=== PATIENT | female | born 1935 | race Caucasian/White ===

== ENCOUNTER 2017-07-14 13:14 | Inpatient (IN) | payer OTHER ==
[~2017-07-14] VITALS: Ht 157.5 cm; Wt 77.6 kg
[~2017-07-14 13:14] MED LIST: ADULT LOW STREN81 M2 PO; ALENDRONATE SOD70 MG PO; AMARYL1 MG PO; AMARYL2 MG PO; ASCORBIC ACID500 M1 PO; ASCORBIC ACID500 M3 PO; ASPIR 8181 M1 PO; AVENTYL,PAMELOR10 M1 PO; BACTRIM,SEPT1 TABLET PO; BUMETANIDE2 MG PO; CEFTIN250 MG PO; CITALOPRAM HBR10 MG PO; Colace PO; DILAUDID2 MG PO; Dilaudid PO; Duragesic TD; ERGOCALCIF50000 UNIT PO; FOSAMAX70 MG PO; GABAPENTIN800 MG PO; GLUCOPHAGE XR500 MG PO; GLUCOPHAGE1000 MG PO; GLUCOSAMINE CH1 EAC2 PO; GLUCOSAMINE1000 MG PO; IRON325 M1 PO; JANUVIA25 M1 PO; LASIX40 MG PO; LIDOCAINE700 MG TD; LISINOPRIL10 MG PO; LOPRESSOR100 M1 PO; LOW DOSE ASPIRI81 M2 PO; Levaquin PO; METFORMIN HCL1000 M1 PO; METOPROLOL TART25 MG PO; MIRALAX, GLYCOL1 PK1 PO; MUPIROCIN22 GM TP; NEURONTIN300 MG PO; NEURONTIN400 MG PO; OXYCODONE HCL5 MG PO; PAMELOR10 MG PO; PERCOCET 5/31 TABLET PO; PRINIVIL10 MG PO; PROMETHAZINE HC25 M1 PO; PROTONIX40 MG PO; SENOKOT S,PE1 TABLET PO; SIMVASTATIN40 M1 PO; TOPROL XL100 MG PO; TRAMADOL HCL50 MG PO; TRAZODONE HCL50 MG PO; TYLENOL REGULA325 MG PO; VICODIN 5-3001 EACH PO; VITAMIN B-12250 MCG PO; VITAMIN B12-FO1 EACH PO; VITAMIN D1000 INTUN PO; VITAMIN D1000 UNIT PO; VITAMIN D250000 UNIT PO; VITAMIN D31000 UNIT PO; VITAMIN D5000 INTUN PO; Vitamin D, Drisdol PO; ZOCOR40 MG PO
[2017-07-14 15:45] LABS: EOSINOPHIL (%) 0.8 % (0-5); EOSINOPHIL COUNT 0.1 K/uL (0-0.3); HEMATOCRIT 35.2 % (36.0-46.0); IMMATURE GRANULOCYTE (%) 0.2 % (0.0-0.7); INSTRUMENT ABS NEUTROPHIL CT 5.6 K/uL; LYMPHOCYTE COUNT 1.9 K/uL (1.0-2.8); MCH 28.9 PG (29.0-34.0); MCV 87.6 FL (83-99); MEAN PLAT.VOLUME 9.7 uM^3 (9.5-12.4); MONOCYTE (%) 8.4 % (3-12); MONOCYTE COUNT 0.7 K/uL (0-0.8); NEUTROPHIL (%) 66.9 % (45-76); NEUTROPHIL COUNT 5.6 K/uL (1.8-6.4); PLATELET COUNT 280 K/uL (156-360); RBC DIS.WIDTH-CV 12.8 % (11.8-14.6); RED BLOOD COUNT 4.02 M/uL (3.80-5.20); WHITE BLOOD COUNT 8.3 K/uL (4.1-10.2)
[2017-07-14 15:54] LABS: CHLORIDE 103 mEq/L (99-109); POTASSIUM 3.9 mEq/L (3.7-5.4); SODIUM 141 mEq/L (136-147)
[2017-07-14 15:55] LABS: GLUCOSE 134 mg/dL (70-99)
[2017-07-14 15:57] LABS: ANION GAP 14 MEQ/L (2-14)
[2017-07-14 15:59] LABS: GFR ESTIMATE (CALCULATED) 50 mL/min/
[2017-07-14 16:00] LABS: UREA NITROGEN (BUN) 24 mg/dL (9-23)
[2017-07-14] MEDS ORDERED: NEURONTIN400 MG PO (17:26)
[2017-07-14] MEDS ORDERED: CELEXA20 MG PO (17:26)
[2017-07-14] MEDS ORDERED: BUMEX1 MG PO (17:28)
[2017-07-14] MEDS ORDERED: BUMEX2 MG PO (17:28)
[2017-07-14] MEDS ORDERED: LO-DOSE ASPIRIN81 M1 PO (17:29)
[2017-07-14] MEDS ORDERED: VITAMIN E400 UNIT PO (17:29)
[2017-07-14] MEDS ORDERED: LOPRESSOR25 MG PO (17:29)
[2017-07-14] MEDS ORDERED: AMARYL2 MG PO (17:30)
[2017-07-14] MEDS ORDERED: ZESTRIL2.5 MG PO (17:30)
[2017-07-14] MEDS ORDERED: GLUCOPHAGE500 MG PO (17:30)
[2017-07-14] MEDS ORDERED: OCEAN NASAL 0.645 ML BOTH NARES (17:31)
[2017-07-14] MEDS ORDERED: B-12500 MC1 SL (17:32)
[2017-07-14 20:46] VITALS: BP 188/77
[2017-07-14 21:31] LABS: POINT-OF-CARE METER ID UU14208753
[2017-07-14 23:37] VITALS: BP 161/87
[2017-07-15 02:29] LABS: ADD MIUA? YES; BILIRUBIN NEGATIVE; BLOOD NEGATIVE; COLOR STRAW ((YELLOW)); GLUCOSE (STRIP) NEGATIVE; KETONES NEGATIVE; LEUKOCYTES SMALL; NITRITE NEGATIVE; PROTEIN (STRIP) NEGATIVE; SPECIFIC GRAVITY 1.011 (1.000-1.030); UROBILINOGEN 0.2 MG/DL (0.2-1.0)
[2017-07-15 02:33] LABS: BACTERIA NONE SEEN /HPF; EPITHELIAL CELLS RARE /HPF; MUCUS NONE SEEN /LPF; RED BLOOD CELLS 0-5 /HPF (0-5); WHITE BLOOD CELLS 15-20 /HPF (0-5)
[2017-07-15 05:36] VITALS: BP 145/63
[2017-07-15 06:32] LABS: ANION GAP 10 MEQ/L (2-14); CHLORIDE 107 MEQ/L (99-109); GFR ESTIMATE (CALCULATED) 56 mL/min/; GLUCOSE 104 mg/dL (70-99); POTASSIUM 4.3 MEQ/L (3.7-5.4); SAMPLE HEMOLYSIS CHECK 1; SAMPLE ICTERIC CHECK 0; SAMPLE LIPEMIA CHECK 0; SODIUM 141 MEQ/L (136-147); UREA NITROGEN (BUN) 20 mg/dL (9-23)
[2017-07-15 06:34] LABS: POINT-OF-CARE METER ID UU14208753
[2017-07-15 07:27] LABS: HEMATOCRIT 31.9 % (36.0-46.0); MCH 29.7 PG (29.0-34.0); MCHC 33.2 G/DL (30.0-36.0); MCV 89.4 FL (83-99); MEAN PLAT.VOLUME 9.9 uM^3 (9.5-12.4); PLATELET COUNT 260 K/uL (156-360); RBC DIS.WIDTH-SD 42.5 % (39-53); RED BLOOD COUNT 3.57 M/uL (3.80-5.20); WHITE BLOOD COUNT 5.4 K/uL (4.1-10.2)
[2017-07-15 08:03] VITALS: BP 145/62
[2017-07-15 11:57] LABS: POINT-OF-CARE METER ID UU14208753
[2017-07-15 12:29] VITALS: BP 134/63
[2017-07-15 16:47] LABS: POINT-OF-CARE METER ID UU14117124
[2017-07-15 17:21] VITALS: BP 108/53
[2017-07-15 20:19] VITALS: BP 117/57
[2017-07-15 21:57] LABS: POINT-OF-CARE METER ID UU14117124
[2017-07-15 23:59] VITALS: BP 146/67
[2017-07-16 04:40] VITALS: BP 128/61
[2017-07-16 06:09] LABS: DRVVT 1:1 Mix Immediate NOT CORRECTED sec (CORRECTED); LUPA PHOSPHOLIPID NEUTRALIZ Positive (Negative)
[2017-07-16 06:42] LABS: POINT-OF-CARE METER ID UU14117124
[2017-07-16 07:37] VITALS: BP 112/57
[2017-07-16 12:08] LABS: POINT-OF-CARE METER ID UU14149397
[2017-07-16 12:17] VITALS: BP 136/65
[2017-07-16 15:56] VITALS: BP 128/58
[2017-07-16 16:50] LABS: POINT-OF-CARE METER ID UU14149397
[2017-07-16 22:00] LABS: POINT-OF-CARE METER ID UU14117124
[2017-07-17 00:15] VITALS: BP 129/60
[2017-07-17 07:10] LABS: POINT-OF-CARE METER ID UU14117124
[2017-07-17 07:55] VITALS: BP 97/55
[2017-07-17] MEDS ORDERED: KEFLEX500 MG PO (10:43)
[2017-07-17] MEDS ORDERED: DOXYCYCLINE HY100 MG PO (10:45)
[2017-07-17 12:29] LABS: POINT-OF-CARE METER ID UU14117124
[2017-07-17 16:34] LABS: DRVVT Mixing Study Interp Positive (()); PROTEIN C FUNCTIONAL ACTIVITY+ 177 % (70-180); PTT-LA 31 sec (<=40); Protein S, Free 147 % normal (50-147); Thrombosis Consult Level Limited (()); dRVVT Screen 56 sec (<=45)
[2017-07-18 09:32] LABS: ANTITHROMBIN III ACTIVITY+ 87 % activi (80-120)
== END 2017-07-17 13:56 | disposition home or self-care (01) | DRG 300 ==
LOC: EME 13:14 → EDOF 17:32 → 3EAST 17:32 → ENRESERV 17:35 → 3EAST 20:35
PROVIDERS: Hospitalist; Internal Medicine; Physician Assistant
DX: I82.4Z1 Acute embolism and thrombosis of unspecified deep veins of right distal lower extremity (principal); L03.115 Cellulitis of right lower limb; M86.171 Other acute osteomyelitis, right ankle and foot; F33.9 Major depressive disorder, recurrent, unspecified; E11.42 Type 2 diabetes mellitus with diabetic polyneuropathy; L97.511 Non-pressure chronic ulcer of other part of right foot limited to breakdown of skin; E11.622 Type 2 diabetes mellitus with other skin ulcer; E11.628 Type 2 diabetes mellitus with other skin complications; Z66 Do not resuscitate; M81.0 Age-related osteoporosis without current pathological fracture; L03.031 Cellulitis of right toe; E78.5 Hyperlipidemia, unspecified; I10 Essential (primary) hypertension; K21.9 Gastro-esophageal reflux disease without esophagitis; K42.9 Umbilical hernia without obstruction or gangrene; Z79.82 Long term (current) use of aspirin; Z79.84 Long term (current) use of oral hypoglycemic drugs; Z96.643 Presence of artificial hip joint, bilateral; Z90.710 Acquired absence of both cervix and uterus; Z79.83 Long term (current) use of bisphosphonates; Z88.5 Allergy status to narcotic agent; Z87.442 Personal history of urinary calculi; Z81.8 Family history of other mental and behavioral disorders; Z82.0 Family history of epilepsy and other diseases of the nervous system
CPT/HCPCS: 73660; 73720; 80048; 80202; 81003; 81240 90; 82948; 83090 90; 83605; 85025; 85027; 85240 90; 85300 90; 85303 90; 85305 90; 85306 90; 85307 90; 85613 90; 85651; 85730 90; 86140; 86146 90; 86147 90; 87040; 87070; 87075; 87205; 93971; 99281; 99285; J0690; J1644; J1815; J2543; J3370; J7030; J7050

== ENCOUNTER 2018-04-17 10:44 | Emergency (ER) | payer OTHER ==
[~2018-04-17] VITALS: Ht 157.5 cm; Wt 75.2 kg
[~2018-04-17 10:44] MED LIST changes: +B-12500 MC1 SL; +BUMEX1 MG PO; +BUMEX2 MG PO; +CELEXA20 MG PO; +DOXYCYCLINE HY100 MG PO; +GLUCOPHAGE500 MG PO; +KEFLEX500 MG PO; +LO-DOSE ASPIRIN81 M1 PO; +LOPRESSOR25 MG PO; +OCEAN NASAL 0.645 ML BOTH NARES; +VITAMIN E400 UNIT PO; +ZESTRIL2.5 MG PO
[2018-04-17 11:13] LABS: BASOPHIL (%) 0.4 % (0-1); EOSINOPHIL (%) 0.9 % (0-5); EOSINOPHIL COUNT 0.1 K/uL (0-0.3); HEMATOCRIT 37.3 % (36.0-46.0); HEMOGLOBIN 12.5 G/DL (11.9-15.5); IMMATURE GRANULOCYTE (%) 0.2 % (0.0-0.7); LYMPHOCYTE (%) 17.7 % (15-42); LYMPHOCYTE COUNT 1.7 K/uL (1.0-2.8); MCH 29.4 PG (29.0-34.0); MCHC 33.5 G/DL (30.0-36.0); MCV 87.8 FL (83-99); MONOCYTE (%) 6.9 % (3-12); MONOCYTE COUNT 0.6 K/uL (0-0.8); NEUTROPHIL (%) 73.9 % (45-76); NEUTROPHIL COUNT 6.9 K/uL (1.8-6.4); PLATELET COUNT 210 K/uL (156-360); RBC DIS.WIDTH-CV 13.1 % (11.8-14.6); RBC DIS.WIDTH-SD 41.7 % (39-53); RED BLOOD COUNT 4.25 M/uL (3.80-5.20); WHITE BLOOD COUNT 9.3 K/uL (4.1-10.2)
[2018-04-17 11:18] LABS: INTER. NORMALIZED RATIO 1.2
[2018-04-17 11:21] LABS: PTT 33.2 SEC (25-37)
[2018-04-17 11:23] LABS: ALBUMIN 3.8 g/dL (3.2-4.8); CHLORIDE 101 mEq/L (99-109); POTASSIUM 4.3 mEq/L (3.7-5.4); SODIUM 141 mEq/L (136-147)
[2018-04-17 11:24] LABS: MAGNESIUM 1.1 mg/dL (1.3-2.7)
[2018-04-17 11:26] LABS: GLUCOSE 197 mg/dL (70-99)
[2018-04-17 11:28] LABS: TOTAL BILIRUBIN 1.1 mg/dL (0.0-1.0)
[2018-04-17 11:29] LABS: ALKALINE PHOSPHATASE 50 IU/L (3-129)
[2018-04-17 11:30] LABS: CREATININE 1.1 mg/dL (0.6-1.3); GFR ESTIMATE (CALCULATED) 50 mL/min/
[2018-04-17 11:31] LABS: AST (GOT) 21 IU/L (2-34); DIRECT BILIRUBIN 0.3 mg/dL (0.0-0.3); UREA NITROGEN (BUN) 29 mg/dL (9-23)
[2018-04-17 11:33] LABS: ALT (GPT) 13 IU/L (3-49); CREATINE KINASE 335 IU/L (1-294); TROP-I INTERPRETATION NEGATIVE; TROPONIN-I < 0.01 ng/mL (0.0-0.30)
[2018-04-17 13:53] LABS: APPEARANCE SL.HAZY ((CLEAR)); BILIRUBIN NEGATIVE; BLOOD NEGATIVE; COLOR YELLOW ((YELLOW)); GLUCOSE (STRIP) NEGATIVE; KETONES NEGATIVE; LEUKOCYTES SMALL; NITRITE NEGATIVE; PROTEIN (STRIP) NEGATIVE; SPECIFIC GRAVITY 1.017 (1.000-1.030); UROBILINOGEN 0.2 MG/DL (0.2-1.0)
[2018-04-17 14:00] LABS: BACTERIA RARE /HPF; EPITHELIAL CELLS 1+ /HPF; MUCUS TRACE /LPF; RED BLOOD CELLS 0-5 /HPF (0-5); UCUL ADDED? YES
[2018-04-17 15:22] VITALS: BP 120/53
== END 2018-04-17 15:24 | disposition home or self-care (01) ==
LOC: EME 10:44
PROVIDERS: Emergency Medicine
DX: R51 Headache (principal); M54.2 Cervicalgia; M79.601 Pain in right arm; M54.9 Dorsalgia, unspecified; M25.511 Pain in right shoulder; R07.9 Chest pain, unspecified; M25.559 Pain in unspecified hip; R53.1 Weakness; W19.XXXA Unspecified fall, initial encounter; R94.31 Abnormal electrocardiogram [ECG] [EKG]; M85.88 Other specified disorders of bone density and structure, other site; I10 Essential (primary) hypertension; E78.5 Hyperlipidemia, unspecified; E11.9 Type 2 diabetes mellitus without complications; Z79.84 Long term (current) use of oral hypoglycemic drugs; Z79.82 Long term (current) use of aspirin; Z86.73 Personal history of transient ischemic attack (TIA), and cerebral infarction without residual deficits; Z88.5 Allergy status to narcotic agent; Z96.643 Presence of artificial hip joint, bilateral
CPT/HCPCS: 70450; 71045; 72125; 72128; 72170; 73030; 80048; 80076; 81003; 82550; 83735; 84484; 85025; 85610; 85730; 87086; 93005; 99281; 99285; J3475